=== PATIENT | male | born 1950 | race Caucasian/White ===

== ENCOUNTER 2019-12-16 22:52 | Emergency (ER) | payer MEDICARE ==
[2019-12-16 23:01] VITALS: RESP 18
[2019-12-16 23:11] LABS: Glucose,Whole Blood 451 mg/dL (75-99)
[2019-12-16] MEDS ORDERED: INSULIN REGULAR 100 UNIT/ML VIAL SQ STA (23:43)
[2019-12-16] MEDS ORDERED: SODIUM CHLORIDE 0.9% 1,000 ML IV ONE (23:43)
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
[2019-12-17 00:28] LABS: Basophils % (A) 0 %; Eosinophils # (A) 0.2 k/uL (0-0.7); Eosinophils % (A) 1 %; HCT 44.6 % (39.0-53.0); HGB 13.9 gm/dL (13.0-17.5); Lymphocytes # (A) 0.9 k/uL (1.0-4.8); Lymphocytes % (A) 6 %; MCH 28.2 pg (25.0-35.0); MCHC 31.3 g/dL (31.0-37.0); MCV 90.3 fL (80.0-100.0); Mean Platelet Volume 6.9; Monocytes # (A) 0.8 k/uL (0-1.0); Monocytes % (A) 5 %; Neutrophils # (A) 13.6 k/uL (1.3-7.7); Neutrophils % (A) 88 %; Platelet Count 394 k/uL (150-450); RBC 4.94 m/uL (4.30-5.90); RDW 13.8 % (11.5-15.5); WBC 15.5 k/uL (3.8-10.6)
[2019-12-17 00:31] LABS: Appearance,Urine Clear (Clear); Bilirubin,Urine Negative (Negative); Blood,Urine Negative (Negative); Color,Urine Light Yellow; Glucose,Urine (UA) 4+ (Negative); Ketones,Urine Negative (Negative); Leukocyte Esterase,Urine Negative (Negative); Nitrite,Urine Negative (Negative); Protein,Urine Negative (Negative); Specific Gravity,Urine 1.026 (1.001-1.035); Urobilinogen,Urine <2.0 mg/dL (<2.0)
[2019-12-17 00:37] LABS: ALT 17 U/L (4-49); AST 17 U/L (17-59); African American GFR (CKD) 80 (>60 ml/min/1.73 sqM); Albumin 4.1 g/dL (3.5-5.0); Alkaline Phosphatase 51 U/L (38-126); Anion Gap 9 mmol/L; Blood Urea Nitrogen 23 mg/dL (9-20); Calcium 9.3 mg/dL (8.4-10.2); Carbon Dioxide 22 mmol/L (22-30); Chloride 101 mmol/L (98-107); Glucose 420 mg/dL (74-99); Non-African American GFR(CKD) 69 (>60 ml/min/1.73 sqM); Potassium 5.5 mmol/L (3.5-5.1); Sodium 132 mmol/L (137-145); Total Bilirubin 0.3 mg/dL (0.2-1.3); Total Protein 6.6 g/dL (6.3-8.2)
[2019-12-17] MEDS ORDERED: SODIUM CHLORIDE 0.9% 1,000 ML IV ONE (01:08)
[2019-12-17 01:13] LABS: Glucose,Whole Blood 373 mg/dL (75-99)
[2019-12-17 02:01] LABS: Glucose,Whole Blood 318 mg/dL (75-99)
[2019-12-17 02:19] VITALS: BP 123/82; PULSE 59; TEMP 98.4
== END 2019-12-17 02:29 | disposition home or self-care (01) ==
LOC: EC 22:52
DX: E11.65 Type 2 diabetes mellitus with hyperglycemia (principal); J44.9 Chronic obstructive pulmonary disease, unspecified; I10 Essential (primary) hypertension; E78.5 Hyperlipidemia, unspecified; I25.2 Old myocardial infarction; F17.200 Nicotine dependence, unspecified, uncomplicated; Z79.02 Long term (current) use of antithrombotics/antiplatelets; Z79.1 Long term (current) use of non-steroidal anti-inflammatories (NSAID); Z79.84 Long term (current) use of oral hypoglycemic drugs; Z79.899 Other long term (current) drug therapy; Z88.5 Allergy status to narcotic agent; Z91.018 Allergy to other foods; Z95.1 Presence of aortocoronary bypass graft; Z95.5 Presence of coronary angioplasty implant and graft
CPT/HCPCS: 36415; 80053; 81003; 82009; 84484; 85025; 93005; 96360; 96361; 99285

== ENCOUNTER 2020-03-08 12:36 | Inpatient (IN) | payer MEDICARE ==
[2020-03-08] MEDS ORDERED: ASPIRIN 81 MG PO STA (12:58)
[2020-03-08] MEDS ORDERED: HYDROmorphone 0.5 MG/0.5 ML SYRINGE IVP STA ×3 (13:03→20:05)
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
[2020-03-08 13:22] LABS: Basophils # (A) 0.2 k/uL (0-0.2); Basophils % (A) 2 %; Eosinophils # (A) 0.5 k/uL (0-0.7); Eosinophils % (A) 4 %; HCT 42.9 % (39.0-53.0); HGB 14.3 gm/dL (13.0-17.5); Lymphocytes # (A) 2.1 k/uL (1.0-4.8); Lymphocytes % (A) 19 %; MCHC 33.3 g/dL (31.0-37.0); MCV 90.1 fL (80.0-100.0); Mean Platelet Volume 7.1; Monocytes # (A) 0.8 k/uL (0-1.0); Monocytes % (A) 7 %; Neutrophils # (A) 7.2 k/uL (1.3-7.7); Neutrophils % (A) 65 %; Platelet Count 382 k/uL (150-450); RBC 4.76 m/uL (4.30-5.90); RDW 13.4 % (11.5-15.5)
--- NOTE | 2020-03-08 13:26 | XR ---
EXAMINATION TYPE: XR chest 2V DATE OF EXAM: 03/08/2020 COMPARISON: 12/12/2019 TECHNIQUE: PA and lateral views submitted. HISTORY: Chest pain FINDINGS: The lungs are clear and there is no pneumothorax, pleural effusion, or focal pneumonia. Heart is en larged. There are sternotomy wires. Postsurgical changes overlying the vertebral column. Hyperinflati on seen. No overt failure. Hypertrophic and degenerative change of the spine. Correlate for previous coronary artery stenting. IMPRESSION: 1. COPD and cardiomegaly..
[2020-03-08 13:34] LABS: Albumin 4.1 g/dL (3.5-5.0); Calcium 9.3 mg/dL (8.4-10.2); Magnesium 1.9 mg/dL (1.6-2.3); Potassium 5.1 mmol/L (3.5-5.1); Total Bilirubin 0.6 mg/dL (0.2-1.3)
[2020-03-08 13:40] LABS: INR 0.9 (<1.2); Prothrombin Time 9.5 sec (9.0-12.0)
[2020-03-08 13:49] LABS: Partial Thromboplastin Time 21.2 sec (22.0-30.0)
[2020-03-08] MEDS ORDERED: ALBUTEROL HFA INHALER INHALATION PRN (15:01)
[2020-03-08] MEDS ORDERED: NALOXONE 0.4 MG/ML 1 ML VIAL IV PRN (15:02)
[2020-03-08] MEDS: CYCLOBENZAPRINE 10 MG TAB PO PRN (15:25)
[2020-03-08] MEDS: CLOPIDOGREL 75 MG TAB PO SCH (15:25)
[2020-03-08] MEDS: GABAPENTIN 300 MG CAP PO PRN (15:25)
[2020-03-08] MEDS: NITROGLYCERIN SL TABS 0.4 MG TAB SUBLINGUAL PRN ×2 (15:25→19:47)
[2020-03-08] MEDS ORDERED: lisinopriL 10 MG TAB PO ONE (15:30)
[2020-03-08] MEDS ORDERED: METOPROLOL TARTRATE 25 MG TAB PO ONE (15:30)
[2020-03-08] MEDS ORDERED: amLODIPine 5 MG TAB PO ONE (15:30)
[2020-03-08] MEDS ORDERED: metFORMIN 500 MG TAB PO ONE (15:30)
[2020-03-08] MEDS ORDERED: MELOXICAM 7.5 MG TAB PO ONE (15:30)
[2020-03-08] MEDS ORDERED: SPIRONOLACTONE 25 MG TAB PO ONE (15:30)
[2020-03-08 15:36] LABS: Glucose,Whole Blood 166 mg/dL (75-99)
[2020-03-08] MEDS: MORPHINE SULFATE 4 MG/ML SYRINGE IV PRN ×2 (16:33→23:05)
[2020-03-08] MEDS: methylPREDNISolone SOD SUCCI 40 MG/ML 1 ML VIAL IV SCH ×2 (16:33→23:06)
[2020-03-08] MEDS ORDERED: HEPARIN SODIUM,PORCINE 5,000 UNIT/ML 1 ML VIAL IV ONE (18:14)
[2020-03-08] MEDS ORDERED: HEPARIN SODIUM,PORCINE 5,000 UNIT/ML 1 ML VIAL IV PRN (18:14)
[2020-03-08] MEDS ORDERED: HEPARIN SOD,PORK IN 0.45% NACL 25,000 UNIT in 0.45% NACL 1 250ML.BAG IV SCH (18:30)
[2020-03-08 19:46] LABS: Partial Thromboplastin Time 85.8 sec (22.0-30.0); Prothrombin Time 10.1 sec (9.0-12.0)
[2020-03-08] MEDS: ATORVASTATIN 40 MG TAB PO SCH (20:18)
[2020-03-08 20:39] LABS: Glucose,Whole Blood 248 mg/dL (75-99)
[2020-03-08] MEDS: METOPROLOL TARTRATE 25 MG TAB PO SCH (21:54)
[2020-03-08] MEDS: MELOXICAM 7.5 MG TAB PO SCH (21:54)
[2020-03-08] MEDS: amLODIPine 5 MG TAB PO SCH (21:55)
[2020-03-08] MEDS: traZODone HCL 50 MG TAB PO PRN (21:55)
[2020-03-08] MEDS: INSULIN DETEMIR (LEVEMIR) 100 UNIT/ML SYR SQ SCH (21:55)
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
[2020-03-09] MEDS: MORPHINE SULFATE 4 MG/ML SYRINGE IV PRN ×3 (05:22→15:37)
[2020-03-09 06:19] LABS: Glucose,Whole Blood 258 mg/dL (75-99)
[2020-03-09] MEDS: INSULIN ASPART (NovoLOG) 100 UNIT/ML VIAL SQ SCH ×6 (06:25→21:40)
[2020-03-09] MEDS ORDERED: metFORMIN 500 MG TAB PO SCH (07:30)
[2020-03-09] MEDS ORDERED: ASPIRIN 325 MG TAB PO SCH (09:00)
[2020-03-09] MEDS: MELOXICAM 7.5 MG TAB PO SCH ×2 (09:18→21:37)
[2020-03-09] MEDS: amLODIPine 5 MG TAB PO SCH ×2 (09:18→21:37)
[2020-03-09] MEDS: lisinopriL 10 MG TAB PO SCH (09:18)
[2020-03-09] MEDS: methylPREDNISolone SOD SUCCI 40 MG/ML 1 ML VIAL IV SCH ×2 (09:19→15:39)
[2020-03-09] MEDS: NITROGLYCERIN OINT 1 INCH/GM PACKET TOPICAL SCH ×4 (09:19→23:29)
[2020-03-09] MEDS: METOPROLOL TARTRATE 25 MG TAB PO SCH ×2 (09:19→21:37)
[2020-03-09] MEDS: CLOPIDOGREL 75 MG TAB PO SCH (09:19)
[2020-03-09] MEDS ORDERED: ATORVASTATIN 80 MG TAB PO STA (09:56)
[2020-03-09] MEDS ORDERED: SODIUM CHLORIDE 0.9% 1,000 ML in EMPTY BAG 1 BAG IV ONE (09:56)
[2020-03-09] MEDS ORDERED: ALPRAZolam 0.25 MG TAB PO PRN (09:56)
[2020-03-09] MEDS ORDERED: NITROGLYCERIN SL TABS 0.4 MG TAB SUBLINGUAL PRN (09:56)
[2020-03-09] MEDS ORDERED: ALPRAZolam 0.5 MG TAB PO PRN (09:56)
[2020-03-09] MEDS ORDERED: ASPIRIN 325 MG TAB PO STA (09:56)
[2020-03-09 11:09] LABS: Basophils # (A) 0.1 k/uL (0-0.2); Basophils % (A) 0 %; Eosinophils # (A) 0.2 k/uL (0-0.7); Eosinophils % (A) 1 %; HCT 43.6 % (39.0-53.0); HGB 14.4 gm/dL (13.0-17.5); Lymphocytes # (A) 1.3 k/uL (1.0-4.8); Lymphocytes % (A) 7 %; MCH 30.1 pg (25.0-35.0); MCHC 33.2 g/dL (31.0-37.0); MCV 90.9 fL (80.0-100.0); Mean Platelet Volume 7.8; Monocytes # (A) 0.4 k/uL (0-1.0); Monocytes % (A) 2 %; Neutrophils # (A) 15.6 k/uL (1.3-7.7); Neutrophils % (A) 89 %; Platelet Count 382 k/uL (150-450); RBC 4.79 m/uL (4.30-5.90); RDW 13.4 % (11.5-15.5); WBC 17.6 k/uL (3.8-10.6)
--- NOTE | 2020-03-09 11:28 | ECHOF ---
Referral Reason:LV function, elevated troponins, chest pain MEASUREMENTS -------- HEIGHT: 162.6 cm WEIGHT: 106.1 kg BP: IVSd: 1.0 cm (0.6 - 1.1) LVIDd: 4.5 cm (3.9 - 5.3) LVPWd: 1.2 cm (0.6 - 1.1) IVSs: 1.3 cm LVIDs: 2.9 cm LVPWs: 1.4 cm Ao Diam: 2.9 cm (2.0 - 3.7) LA Diam: 2.6 cm (2.7 - 3.8) MV EXCURSION: 9.761 mm (> 18.000) MV EF SLOPE: 64 mm/s (70 - 150) EPSS: 1.4 cm MV E Parth: 0.77 m/s MV DecT: 152 ms MV A Parth: 1.04 m/s MV E/A Ratio: 0.74 RAP: 5.00 mmHg RVSP: 9.20 mmHg FINDINGS -------- This was a technically difficult study with suboptimal views. The left ventricular size is normal. Left ventricular wall thickness is normal. Overall left vent ricular systolic function is moderate-severely impaired with, an EF between 30 - 35 %. The RV was not well visualized. The left atrium was not well visualized. The right atrium was not well visualized. Lumason used The aortic valve was not well visualized. The mitral valve was not well visualized. There is trace mitral regurgitation. The tricuspid valve was not well visualized. Trace tricuspid regurgitation present. Right ventric ular systolic pressure is normal at < 35 mmHg. The pulmonic valve was not well visualized. There is an apical LV thrombus. The aortic root size is normal. IVC Not well visulized. There is no pericardial effusion. CONCLUSIONS -------- 1. The left ventricular size is normal. 2. Left ventricular wall thickness is normal. 3. Overall left ventricular systolic function is moderate-severely impaired with, an EF between 30 - 35 %. 4. There is trace mitral regurgitation. 5. Trace tricuspid regurgitation present. 6. There is an apical LV thrombus. 7. There is no pericardial effusion. CLERK SPECIALIST: Mary Kate Contreras RDCS
[2020-03-09 11:39] LABS: Calcium 10.3 mg/dL (8.4-10.2); Potassium 5.4 mmol/L (3.5-5.1)
[2020-03-09] MEDS ORDERED: IV FLUID CONTINUATION 700 ML IV ONE (11:40)
[2020-03-09] MEDS ORDERED: LIDOCAINE 1% INJ 10MG/ML (20 ML MDV) SQ ONE (12:00)
[2020-03-09] MEDS: MIDAZOLAM 2 MG/2 ML VIAL IV ONE ×2 (12:00→12:18)
[2020-03-09] MEDS ORDERED: VERAPAMIL SYRINGE (5 MG/10 ML) INTRAARTER ONE (12:06)
[2020-03-09] MEDS ORDERED: HEPARIN SODIUM 1,000 UN/ML (10ML VL) IV ONE (12:08)
[2020-03-09] MEDS ORDERED: MORPHINE SULFATE 4 MG/ML SYRINGE IV ONE (12:18)
[2020-03-09] MEDS ORDERED: IOPAMIDOL-370 125ML BTL INJ ONE (12:34)
[2020-03-09] MEDS ORDERED: RX INFO: IV CONTRAST WAS GIVEN 1 EACH MISC MISCELLANE PRN (13:32)
--- NOTE | 2020-03-09 13:32 | P.CARDCATH ---
Description of Procedure: PROCEDURES PERFORMED: Left heart catheterization, bilateral coronary angiography, SVG to diagonal angiography INDICATION: Non-STEMI HISTORY: Patient is a pleasant 69-year-old male with history of COPD, coronary artery disease status post CABG in 1994 with only remaining grafts being SVG to diagonal branch back filling the LAD, diabetes mellitus, hypertension, hyperlipidemia, morbid obesity who presents secondary to retrosternal chest pain. He was found to have non-STEMI however by the time he presented to the [facility] is not complaining of any chest discomfort. He does have a history of prior PCI to the RCA as well as PCI of the SVG to diagonal branch x2 that backfills a [employer]ACHINE [employer] of the proximal to mid LAD. Last heart catheterization was from 2009. Patient had an echocardiogram performed which showed ejection fraction 30-35% with apical thrombus. CONSENT:I have discussed the risks, benefits and alternative therapies for the above-mentioned procedure and for both sedation/analgesia as well as necessary blood product administration, if indicated, as they pertain to this patient. The patient has indicated understanding and acceptance of the risks and procedures discussed. PROCEDURE: After the risks, benefits and alternatives of the above mentioned procedure explained in detail with the patient, informed consent was obtained. Patient was taken to the catheterization lab and prepped and draped in usual fashion. 1% lidocaine was used to anesthetize the right radial artery. A 6- Beninese sheath was placed in the right radial artery using modified Seldinger technique. Left coronary angiography was performed with a 5-Beninese JL 3.5 catheter and right coronary angiography was performed with a 6-Beninese AL1 cathet er in various views. The SVG to diagonal branch was engaged with a 5-Beninese FR 5 catheter and angiography was performed. The 5-Beninese FR 5 catheter fell into the left ventricle and therefore pressure measurements were obtained. Due to patient not having any active chest pain with relatively unchanged [place] coronaries and LAD intervention requiring complex [employer] procedure, the procedure was ended. The right radial sheath was removed and a TR band was placed with hemostasis achieved. The patient tolerated the procedure well. Patient was transported back to the post catheterization holding area in stable condition. Conscious Sedation: Patient was monitored under the direct supervision of vision of myself for conscious sedation using Versed and morphine for a total duration of 33 minutes HEMODYNAMICS: Ao: 112/53 LV: 112/5 LVEDP 17 SELECTIVE CORONARY ARTERIOGRAPHY: LEFT MAIN: The left main is a large caliber vessel which bifurcates into the LAD and circumflex. There is a heavily calcified distal left main 40-50% stenosis. LEFT ANTERIOR DESCENDING CORONARY ARTERY: LAD is a large caliber vessel which wraps around to the apex. There is a proximal LAD 50% stenosis and gives off a small diagonal branch and then there is a 100% mid LAD occlusion. This appears to be a [employer] of approximately 40 mm. A moderate caliber diagonal 1 branch and the mid to distal LAD is filled by left to left collaterals. There appears to be at least a 50-70% stenosis of the mid LAD just after the diagonal 1 branch. LEFT CIRCUMFLEX CORONARY ARTERY: Left circumflex is a moderate caliber vessel. It gives off a moderate caliber OM1 without significant stenosis, OM 2 with a mid 40-50% stenosis and just distal to OM2, the circumflex has a 40-50% stenosis just after the bifurcation. RIGHT CORONARY ARTERY: The right coronary artery is a large caliber vessel which is almost aneurysmal which gives off a PDA and PLV branch and is the dominant vessel. There is a proximal RCA stent with mild 20% in-stent stenosis as well as a mid to distal RCA stent without in-stent stenosis. There is a focal 40-50% mid RCA stenosis. Just after the stent there is a 40% stenosis. There are right to left collaterals to the LAD. SVG to LAD: The SVG is 100% occluded proximally. There are previous stents in the proximal and midportion. FINAL IMPRESSION: 1. CAD as described above including 4050% left main stenosis, 100% long [employer] lesion of the proximal and mid LAD, 50-70% mid to distal LAD stenosis, 40-50% circumflex stenosis and 40-50% mid RCA stenosis. 100% occlusion of SVG to LAD 2. Mildly elevated left-sided filling pressures. 3. Non-STEMI PLAN: 1. Aggressive risk factor modification per most recent ACC/AHA guidelines. 2. Would attempt medical therapy as patient is currently chest pain-free. [employer] intervention would require a long approximately 40 mm heavily calcified lesion.
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
[2020-03-09] MEDS: SPIRONOLACTONE 25 MG TAB PO SCH ×2 (14:40→15:40)
[2020-03-09] MEDS: IPRATROPIUM-ALBUTEROL 3 ML NEB INHALATION PRN (15:08)
[2020-03-09 16:52] LABS: Glucose,Whole Blood 367 mg/dL (75-99)
[2020-03-09 17:15] LABS: Hemoglobin A1C 8.4 % (4.0-6.0)
[2020-03-09 20:14] LABS: Glucose,Whole Blood 357 mg/dL (75-99)
[2020-03-09] MEDS: APIXABAN 5 MG TAB PO SCH (21:37)
[2020-03-09] MEDS: INSULIN DETEMIR (LEVEMIR) 100 UNIT/ML SYR SQ SCH (21:37)
[2020-03-09] MEDS: ATORVASTATIN 40 MG TAB PO SCH (21:37)
[2020-03-09] MEDS: PANTOPRAZOLE 40 MG TABLET PO SCH (21:46)
[2020-03-09] MEDS: GABAPENTIN 300 MG CAP PO PRN (21:46)
[2020-03-09] MEDS: traZODone HCL 50 MG TAB PO PRN (23:25)
[2020-03-10] MEDS: MORPHINE SULFATE 4 MG/ML SYRINGE IV PRN ×5 (02:25→23:12)
[2020-03-10 06:13] LABS: Glucose,Whole Blood 228 mg/dL (75-99)
[2020-03-10] MEDS: NITROGLYCERIN OINT 1 INCH/GM PACKET TOPICAL SCH (06:28)
[2020-03-10] MEDS: PANTOPRAZOLE 40 MG TABLET PO SCH ×2 (06:31→17:55)
[2020-03-10] MEDS: INSULIN ASPART (NovoLOG) 100 UNIT/ML VIAL SQ SCH ×7 (06:31→20:58)
[2020-03-10] MEDS: SPIRONOLACTONE 25 MG TAB PO SCH (08:33)
[2020-03-10] MEDS: lisinopriL 10 MG TAB PO SCH (08:33)
[2020-03-10] MEDS: MELOXICAM 7.5 MG TAB PO SCH ×2 (08:33→20:58)
[2020-03-10] MEDS: CLOPIDOGREL 75 MG TAB PO SCH (08:33)
[2020-03-10] MEDS: predniSONE 10 MG TAB PO SCH (08:33)
[2020-03-10] MEDS: amLODIPine 5 MG TAB PO SCH (08:34)
[2020-03-10] MEDS: APIXABAN 5 MG TAB PO SCH ×2 (08:34→20:57)
[2020-03-10] MEDS: METOPROLOL TARTRATE 25 MG TAB PO SCH (08:34)
[2020-03-10] MEDS ORDERED: ASPIRIN 81 MG PO SCH (09:00)
[2020-03-10 10:05] LABS: Basophils # (A) 0.1 k/uL (0-0.2); Basophils % (A) 1 %; Eosinophils # (A) 0.2 k/uL (0-0.7); Eosinophils % (A) 1 %; HCT 41.9 % (39.0-53.0); HGB 13.9 gm/dL (13.0-17.5); Lymphocytes # (A) 1.3 k/uL (1.0-4.8); Lymphocytes % (A) 6 %; MCH 30.4 pg (25.0-35.0); MCHC 33.2 g/dL (31.0-37.0); MCV 91.7 fL (80.0-100.0); Mean Platelet Volume 7.2; Monocytes # (A) 1.4 k/uL (0-1.0); Monocytes % (A) 6 %; Neutrophils # (A) 19.2 k/uL (1.3-7.7); Neutrophils % (A) 85 %; Platelet Count 349 k/uL (150-450); RBC 4.57 m/uL (4.30-5.90); RDW 13.5 % (11.5-15.5); WBC 22.6 k/uL (3.8-10.6)
[2020-03-10 10:14] LABS: Calcium 9.4 mg/dL (8.4-10.2)
[2020-03-10 11:39] LABS: Glucose,Whole Blood 396 mg/dL (75-99)
[2020-03-10 11:39] LABS: Glucose,Whole Blood 404 mg/dL (75-99)
[2020-03-10] MEDS: IPRATROPIUM-ALBUTEROL 3 ML NEB INHALATION PRN ×3 (13:36→19:15)
--- NOTE | 2020-03-10 16:20 | P.PN ---
Subjective Progress Note Date: 03/10/20 CHIEF COMPLAINT: Chest pain HISTORY OF PRESENT ILLNESS: Patient is status post cardiac catheterization with Dr. Duran revealing 40-50% stenosis left main, 100% long [employer]IST lesion of the proximal and mid LAD, 50-70% mid to distal LAD, 40-50% circumflex and 40-50% mid RCA stenosis. 100% occlusion of SVG to LAD. Patient examined this morning at the bedside. Patient denies chest pain or pressure. He denies shortness of breath at rest. Vital signs are stable. PHYSICAL EXAM: VITAL SIGNS: Reviewed. GENERAL: Well-developed in no acute distress. HEENT: Head is normocephalic. Pupils are equal, round. Sclerae anicteric. Mucous membranes of the mouth are moist. Neck supple. No JVD or thyromegaly LUNGS: Respirations even and unlabored. Lungs diminished. HEART: Regular rate and rhythm. S1 and S2 heard. EXTREMITIES: Normal range of motion. No clubbing or cyanosis. Peripheral pulses intact. No lower extremity edema. Cath site clean and intact with pulses present. ASSESSMENT: Non-ST elevated myocardial infarction Apical LV thrombus Coronary artery disease with previous multivessel PCI and CABG Hypertension Hyperlipidemia Diabetes mellitus, type II COPD Obesity BMI 40.2 PLAN: Continue Eliquis for apical LV thrombus Continue Plavix. Discontinue aspirin Discontinue metoprolol. Begin carvedilol 6.25 mg twice a day Increase Lipitor to 80 mg daily Further recommendations pending patient course Nurse practitioner note has been reviewed by physician. Signing provider agrees with the documented findings, assessment, and plan of care. Objective - Vital Signs Vital signs: Vital Signs Temp 97.9 F 03/10/20 08:00 Pulse 73 03/10/20 15:36 Resp 18 03/10/20 12:52 BP 100/62 03/10/20 08:00 Pulse Ox 94 L 03/10/20 08:00 Intake & Output 03/09/20 03/10/20 03/10/20 18:59 06:59 18:59 Intake Total 1274 600 960 Output Total 200 Balance 1274 400 960 Weight 106.5 kg Intake: IV 50 600 0.9 600 Intake, IV Titration 864 Amount Sodium Chloride 0.9% 1, 864 000 ml In Empty Bag 1 bag @ 1 ML/KG/HR 106.3 mls/ hr IV .Q9H25M [facility] Rx#: [id number] Oral 360 960 Output: Urine 200 Other: Voiding Method Toilet Urinal # Voids 300 1 - Labs CBC & Chem 7: 03/10/20 09:44 03/10/20 09:44 Labs: Abnormal Lab Results - Last 24 Hours (Table) 03/09/20 03/09/20 03/09/20 Range/Units 10:29 16:51 20:13 WBC (3.8-10.6) k/uL Neutrophils # (1.3-7.7) k/uL Monocytes # (0-1.0) k/uL Sodium (137-145) mmol/L BUN (9-20) mg/dL Glucose (74-99) mg/dL POC Glucose (mg/dL) 367 H 357 H (75-99) mg/dL Hemoglobin A1c 8.4 H (4.0-6.0) % 03/10/20 03/10/20 03/10/20 Range/Units 06:12 09:44 09:44 WBC 22.6 H (3.8-10.6) k/uL Neutrophils # 19.2 H (1.3-7.7) k/uL Monocytes # 1.4 H (0-1.0) k/uL Sodium 132 L (137-145) mmol/L BUN 29 H (9-20) mg/dL Glucose 297 H (74-99) mg/dL POC Glucose (mg/dL) 228 H (75-99) mg/dL Hemoglobin A1c (4.0-6.0) % 03/10/20 03/10/20 Range/Units 11:33 11:37 WBC (3.8-10.6) k/uL Neutrophils # (1.3-7.7) k/uL Monocytes # (0-1.0) k/uL Sodium (137-145) mmol/L BUN (9-20) mg/dL Glucose (74-99) mg/dL POC Glucose (mg/dL) 396 H 404 H (75-99) mg/dL Hemoglobin A1c (4.0-6.0) %
[2020-03-10 17:03] LABS: Glucose,Whole Blood 261 mg/dL (75-99)
[2020-03-10] MEDS: carvediloL 6.25 MG TAB PO SCH (17:55)
[2020-03-10 20:43] LABS: Glucose,Whole Blood 329 mg/dL (75-99)
[2020-03-10] MEDS: INSULIN DETEMIR (LEVEMIR) 100 UNIT/ML SYR SQ SCH (20:58)
[2020-03-10] MEDS: ATORVASTATIN 80 MG TAB PO SCH (20:58)
[2020-03-10] MEDS: GABAPENTIN 300 MG CAP PO PRN (21:01)
[2020-03-10] MEDS: traZODone HCL 50 MG TAB PO PRN (23:12)
[2020-03-11 06:32] LABS: Glucose,Whole Blood 228 mg/dL (75-99)
[2020-03-11] MEDS: PANTOPRAZOLE 40 MG TABLET PO SCH ×2 (06:37→17:08)
[2020-03-11] MEDS: carvediloL 6.25 MG TAB PO SCH ×2 (06:38→17:08)
[2020-03-11] MEDS: INSULIN ASPART (NovoLOG) 100 UNIT/ML VIAL SQ SCH ×7 (06:38→20:28)
[2020-03-11] MEDS: IPRATROPIUM-ALBUTEROL 3 ML NEB INHALATION PRN ×2 (07:13→15:47)
[2020-03-11 08:13] LABS: Basophils # (A) 0.2 k/uL (0-0.2); Basophils % (A) 1 %; Eosinophils # (A) 0.1 k/uL (0-0.7); Eosinophils % (A) 1 %; HCT 45.4 % (39.0-53.0); HGB 14.7 gm/dL (13.0-17.5); Lymphocytes # (A) 3.9 k/uL (1.0-4.8); Lymphocytes % (A) 19 %; MCH 29.8 pg (25.0-35.0); MCHC 32.4 g/dL (31.0-37.0); MCV 91.8 fL (80.0-100.0); Mean Platelet Volume 7.5; Monocytes # (A) 1.9 k/uL (0-1.0); Monocytes % (A) 9 %; Neutrophils # (A) 14.6 k/uL (1.3-7.7); Neutrophils % (A) 70 %; Platelet Count 399 k/uL (150-450); RBC 4.94 m/uL (4.30-5.90); RDW 13.6 % (11.5-15.5); WBC 20.9 k/uL (3.8-10.6)
[2020-03-11 08:17] LABS: Calcium 9.5 mg/dL (8.4-10.2); Potassium 5.1 mmol/L (3.5-5.1)
[2020-03-11] MEDS: MELOXICAM 7.5 MG TAB PO SCH ×2 (09:07→20:28)
[2020-03-11] MEDS: SPIRONOLACTONE 25 MG TAB PO SCH (09:07)
[2020-03-11] MEDS: predniSONE 10 MG TAB PO SCH (09:07)
[2020-03-11] MEDS: APIXABAN 5 MG TAB PO SCH ×2 (09:07→20:28)
[2020-03-11] MEDS: lisinopriL 10 MG TAB PO SCH (09:08)
[2020-03-11] MEDS: CLOPIDOGREL 75 MG TAB PO SCH (09:08)
[2020-03-11] MEDS ORDERED: SODIUM CHLORIDE 0.9% 1,000 ML IV SCH ×2 (11:45)
[2020-03-11 11:48] LABS: Glucose,Whole Blood 154 mg/dL (75-99)
--- NOTE | 2020-03-11 11:58 | P.PN ---
Subjective Progress Note Date: 03/09/20 Principal diagnosis: Acute non-ST elevated WA Acute COPD exacerbation Patient is a 69-year-old male with a known history of COPD, coronary artery disease history of CABG several years ago, cardiac catheterization is history of stent placement, hypertension, hyperlipidemia, diabetes type 2 [id number], history of WA and chronic back pain, morbid obesity with BMI 40.3 and history of diverticulitis presents to ER with complaints of chest pain started around 11 AM today when the got up from sleep and was going to the bathroom. Patient felt pressure-like sensation in the midst retrosternal region. Denied any associated nausea or vomiting. No radiation of the pain. Associate with shortness of breath otherwise. No complaints of fever or chills. Patient states that he always have cough without any change in frequency or sputum production. Patient states that he has not been taking Plavix for the past 10 days as he ran out of medications. Chest x-ray showed COPD and cardiomegaly EKG showed sinus rhythm with occasional PVCs. Laboratory data showed WBC 11.0, hemoglobin 14.3 and platelets 382 Sodium 135, potassium 5.1, BUN 18 and creatinine 1.08 and blood sugar is 200 Troponin 0 0.012, 5.88, 16.8 03/09/2020 Patient is currently status post cardiac catheterization. No complaints of chest pain. Cardiac catheterization showed 40-50% left main stenosis, 100% long PRIMER BOXER lesion of the proximal and mid LAD. 100 versus occlusion of SVG to LAD. Mildly elevated left-sided filling pressure. Aggressive risk factor modification and medical management was recommended by cardiology. Blood sugars are elevated today. Patient was started on insulin regimen. IV steroids changed to prednisone 30 mg daily. Breathing status is improving. Denied any complains of worsening shortness of breath. No nausea vomiting or diarrhea. Current medications reviewed. Objective - Vital Signs Vital signs: Vital Signs Temp 98.0 F 03/09/20 17:17 Pulse 72 03/09/20 17:17 Resp 16 03/09/20 17:17 BP 122/58 03/09/20 17:17 Pulse Ox 92 L 03/09/20 17:17 Intake & Output 03/09/20 03/09/20 03/10/20 06:59 18:59 06:59 Intake Total 53.607 1274 Output Total 690 200 Balance -182.946 7077 -200 Weight 106.3 kg Intake: IV 50 Intake, IV Titration 53.607 864 Amount Heparin Sod,Pork in 0.45% 53.607 NaCl 25,000 unit In 0.45 % NaCl 1 250ml.bag @ 9.4 UNITS/KG/HR 10.02 mls/hr IV .Q24H [facility] Rx#: [id number] Sodium Chloride 0.9% 1, 864 000 ml In Empty Bag 1 bag @ 1 ML/KG/HR 106.3 mls/ hr IV .Q9H25M [facility] Rx#: [id number] Oral 360 Output: Urine 690 200 Other: # Voids 2 300 1 - Exam PHYSICAL EXAMINATION: Patient is lying in the bed comfortably, no acute distress, awake alert and oriented. morbidly obese. HEENT: Normocephalic. Neck is supple. Pupils reactive. Nostrils clear. Oral cavity is moist. Ears reveal no drainage. Neck reveals no JVD, carotid bruits, or thyromegaly. CHEST EXAMINATION: Trachea is central. Symmetrical expansion.mild expiratory wheezing present. CARDIAC: Normal S1, S2 with no gallops. No murmurs ABDOMEN: Soft. Bowel sounds normal. No organomegaly. No abdominal bruits. Extremities: reveal no edema. No clubbing or cyanosis Neurologically awake, alert, oriented x3 with well-coordinated movements. No focal deficits noted Skin: No rash or skin lesions. Psychiatric: Coperative. Nonsuicidal Musculoskeletal: No joint swelling or deformity. Normal range of motion. - Labs CBC & Chem 7: 03/11/20 07:30 03/11/20 07:30 Labs: Abnormal Lab Results - Last 24 Hours (Table) 03/08/20 03/09/20 03/09/20 Range/Units 23:24 06:17 10:29 WBC 17.6 H (3.8-10.6) k/uL Neutrophils # 15.6 H (1.3-7.7) k/uL APTT 36.0 H (22.0-30.0) sec Sodium (137-145) mmol/L Potassium (3.5-5.1) mmol/L BUN (9-20) mg/dL Glucose (74-99) mg/dL POC Glucose (mg/dL) 258 H (75-99) mg/dL Hemoglobin A1c (4.0-6.0) % Calcium (8.4-10.2) mg/dL HDL Cholesterol (40-60) mg/dL 03/09/20 03/09/20 03/09/20 Range/Units 10:29 10:29 10:29 WBC (3.8-10.6) k/uL Neutrophils # (1.3-7.7) k/uL APTT 51.8 H (22.0-30.0) sec Sodium 134 L (137-145) mmol/L Potassium 5.4 H (3.5-5.1) mmol/L BUN 25 H (9-20) mg/dL Glucose 235 H (74-99) mg/dL POC Glucose (mg/dL) (75-99) mg/dL Hemoglobin A1c 8.4 H (4.0-6.0) % Calcium 10.3 H (8.4-10.2) mg/dL HDL Cholesterol 66 H (40-60) mg/dL 03/09/20 03/09/20 Range/Units 16:51 20:13 WBC (3.8-10.6) k/uL Neutrophils # (1.3-7.7) k/uL APTT (22.0-30.0) sec Sodium (137-145) mmol/L Potassium (3.5-5.1) mmol/L BUN (9-20) mg/dL Glucose (74-99) mg/dL POC Glucose (mg/dL) 367 H 357 H (75-99) mg/dL Hemoglobin A1c (4.0-6.0) % Calcium (8.4-10.2) mg/dL HDL Cholesterol (40-60) mg/dL Assessment and Plan Assessment: Acute non-ST elevated WA with elevated troponin level. Status post cardiac cath. Maximal medical therapy was recommended. Chest pain secondary to above Acute COPD exacerbation Hyperglycemia with uncontrolled diabetes type 2 Coronary artery disease with history of CABG and also history of stent placement Hypertension Hyperlipidemia History of WA Internal hemorrhoids History of diverticulitis Chronic back pain and is on follow-up with pain management clinic Ongoing nicotine addiction History of marijuana use and prescription drug abuse History of alcohol abuse currently drinks rarely. Morbid obesity with a BMI 40.3 DVT prophylaxis. Patient is already on heparin drip. Plan: Patient will be continued on telemetry monitoring. Patient is status post cardiac catheterization.. Cardiology is on board. Pain management with morphine and follow-up closely. Continue with breathing treatments and started on Solu-Medrol 40 mg every 8 hourly---> change to prednisone 30 mg daily. Continue with insulin regimen. Titrate down FiO2. Continue with aspirin Plavix, statins and beta-blockers. Prognosis guarded with mild medical problems and comorbid conditions. Time with Patient: Greater than 30
--- NOTE | 2020-03-11 12:00 | P.PN ---
Subjective Progress Note Date: 03/10/20 Principal diagnosis: Acute non-ST elevated KS Acute COPD exacerbation Apical LV thrombus Patient is a 69-year-old male with a known history of COPD, coronary artery disease history of CABG several years ago, cardiac catheterization is history of stent placement, hypertension, hyperlipidemia, diabetes type 2 [id number], history of KS and chronic back pain, morbid obesity with BMI 40.3 and history of diverticulitis presents to ER with complaints of chest pain started around 11 AM today when the got up from sleep and was going to the bathroom. Patient felt pressure-like sensation in the midst retrosternal region. Denied any associated nausea or vomiting. No radiation of the pain. Associate with shortness of breath otherwise. No complaints of fever or chills. Patient states that he always have cough without any change in frequency or sputum production. Patient states that he has not been taking Plavix for the past 10 days as he ran out of medications. Chest x-ray showed COPD and cardiomegaly EKG showed sinus rhythm with occasional PVCs. Laboratory data showed WBC 11.0, hemoglobin 14.3 and platelets 382 Sodium 135, potassium 5.1, BUN 18 and creatinine 1.08 and blood sugar is 200 Troponin 0 0.012, 5.88, 16.8 03/09/2020 Patient is currently status post cardiac catheterization. No complaints of chest pain. Cardiac catheterization showed 40-50% left main stenosis, 100% long PROGRAM SCHEDULE CLERK lesion of the proximal and mid LAD. 100 versus occlusion of SVG to LAD. Mildly elevated left-sided filling pressure. Aggressive risk factor modification and medical management was recommended by cardiology. Blood sugars are elevated today. Patient was started on insulin regimen. IV steroids changed to prednisone 30 mg daily. Breathing status is improving. Denied any complains of worsening shortness of breath. No nausea vomiting or diarrhea. 03/10/2020 Patient is currently sitting on the side of the bed comfortably. Awake alert and oriented 3. Denied complains of chest pain. Shortness of breath is much improved. 2-D echo cardiac exam showed apical LV thrombus and was started on Eliquis. Aspirin has been discontinued and patient will be carried on Plavix. Metoprolol was changed to Coreg and continued on statins. Continue to monitor for another 24 hours. Continue with prednisone and insulin regimen. Tolerating oral diet. Current medications reviewed. Objective - Vital Signs Vital signs: Vital Signs Temp 97.9 F 03/10/20 08:00 Pulse 80 03/10/20 13:47 Resp 18 03/10/20 12:52 BP 100/62 03/10/20 08:00 Pulse Ox 94 L 03/10/20 08:00 Intake & Output 03/09/20 03/10/20 03/10/20 18:59 06:59 18:59 Intake Total 1274 600 960 Output Total 200 Balance 1274 400 960 Weight 106.5 kg Intake: IV 50 600 0.9 600 Intake, IV Titration 864 Amount Sodium Chloride 0.9% 1, 864 000 ml In Empty Bag 1 bag @ 1 ML/KG/HR 106.3 mls/ hr IV .[id number] ONE Rx#: [id number] Oral 360 960 Output: Urine 200 Other: Voiding Method Toilet Urinal # Voids 300 1 - Exam PHYSICAL EXAMINATION: Patient is lying in the bed comfortably, no acute distress, awake alert and oriented. morbidly obese. HEENT: Normocephalic. Neck is supple. Pupils reactive. Nostrils clear. Oral cavity is moist. Ears reveal no drainage. Neck reveals no JVD, carotid bruits, or thyromegaly. CHEST EXAMINATION: Trachea is central. Symmetrical expansion.mild expiratory wheezing present. CARDIAC: Normal S1, S2 with no gallops. No murmurs ABDOMEN: Soft. Bowel sounds normal. No organomegaly. No abdominal bruits. Extremities: reveal no edema. No clubbing or cyanosis Neurologically awake, alert, oriented x3 with well-coordinated movements. No focal deficits noted Skin: No rash or skin lesions. Psychiatric: Coperative. Nonsuicidal Musculoskeletal: No joint swelling or deformity. Normal range of motion. - Labs CBC & Chem 7: 03/11/20 07:30 03/11/20 07:30 Labs: Abnormal Lab Results - Last 24 Hours (Table) 03/09/20 03/09/20 03/09/20 Range/Units 10:29 16:51 20:13 WBC (3.8-10.6) k/uL Neutrophils # (1.3-7.7) k/uL Monocytes # (0-1.0) k/uL Sodium (137-145) mmol/L BUN (9-20) mg/dL Glucose (74-99) mg/dL POC Glucose (mg/dL) 367 H 357 H (75-99) mg/dL Hemoglobin A1c 8.4 H (4.0-6.0) % 03/10/20 03/10/20 03/10/20 Range/Units 06:12 09:44 09:44 WBC 22.6 H (3.8-10.6) k/uL Neutrophils # 19.2 H (1.3-7.7) k/uL Monocytes # 1.4 H (0-1.0) k/uL Sodium 132 L (137-145) mmol/L BUN 29 H (9-20) mg/dL Glucose 297 H (74-99) mg/dL POC Glucose (mg/dL) 228 H (75-99) mg/dL Hemoglobin A1c (4.0-6.0) % 03/10/20 03/10/20 Range/Units 11:33 11:37 WBC (3.8-10.6) k/uL Neutrophils # (1.3-7.7) k/uL Monocytes # (0-1.0) k/uL Sodium (137-145) mmol/L BUN (9-20) mg/dL Glucose (74-99) mg/dL POC Glucose (mg/dL) 396 H 404 H (75-99) mg/dL Hemoglobin A1c (4.0-6.0) % Assessment and Plan Assessment: Acute non-ST elevated KS with elevated troponin level. Status post cardiac cath . Maximal medical therapy was recommended. Chest pain secondary to above Apical LV thrombus. Started on Eliquis. Acute COPD exacerbation Hyperglycemia with uncontrolled diabetes type 2 Coronary artery disease with history of CABG and also history of stent placement Hypertension Hyperlipidemia History of KS Internal hemorrhoids History of diverticulitis Chronic back pain and is on follow-up with pain management clinic Ongoing nicotine addiction History of marijuana use and prescription drug abuse History of alcohol abuse currently drinks rarely. Morbid obesity with a BMI 40.3 DVT prophylaxis. Patient is already on heparin drip. Plan: Patient will be continued on telemetry monitoring. Patient is status post cardiac catheterization.. Cardiology is on board. Pain management with morphin e and follow-up closely. Continue with breathing treatments and started on Solu-Medrol 40 mg every 8 hourly---> change to prednisone 30 mg daily. Continue with insulin regimen. Titrate down FiO2. Continue with Eliquis, Plavix, statins and Coreg. Prognosis guarded with mild medical problems and comorbid conditions. Time with Patient: Greater than 30
--- NOTE | 2020-03-11 15:11 | P.PN ---
Subjective Progress Note Date: 03/11/20 CHIEF COMPLAINT: Chest pain HISTORY OF PRESENT ILLNESS: Patient is status post cardiac catheterization with Dr. Duran revealing 40-50% stenosis left main, 100% long LOOSELEAF BINDER COVERER lesion of the proximal and mid LAD, 50-70% mid to distal LAD, 40-50% circumflex and 40-50% mid RCA stenosis. 100% occlusion of SVG to LAD. Patient examined this morning at the bedside. Patient denies chest pain or pressure. He denies shortness of breath at rest. Patient is having runs of nonsustained ventricular tachycardia. Echocardiogram completed revealed ejection fraction between 30 and 35% PHYSICAL EXAM: VITAL SIGNS: Reviewed. GENERAL: Well-developed in no acute distress. HEENT: Head is normocephalic. Pupils are equal, round. Sclerae anicteric. Mucous membranes of the mouth are moist. Neck supple. No JVD or thyromegaly LUNGS: Respirations even and unlabored. Lungs diminished. HEART: Regular rate and rhythm. S1 and S2 heard. EXTREMITIES: Normal range of motion. No clubbing or cyanosis. Peripheral pulses intact. No lower extremity edema. Cath site clean and intact with pulses present. ASSESSMENT: Non-ST elevated myocardial infarction Apical LV thrombus Coronary artery disease with previous multivessel PCI and CABG Ischemic cardiomyopathy, EF 30-35% Hypertension Hyperlipidemia Diabetes mellitus, type II COPD Obesity BMI 40.2 PLAN: Continue current cardiac medications Patient to undergo ICD tomorrow morning with Dr. Gorman Nurse practitioner note has been reviewed by physician. Signing provider agrees with the documented findings, assessment, and plan of care. Objective - Vital Signs Vital signs: Vital Signs Temp 98.0 F 03/11/20 11:56 Pulse 73 03/11/20 12:44 Resp 18 03/11/20 14:00 BP 110/52 03/11/20 14:00 Pulse Ox 94 L 03/11/20 14:00 Intake & Output 03/10/20 03/11/20 03/11/20 18:59 06:59 18:59 Intake Total 1440 10 930 Balance 1440 10 930 Weight 107.2 kg Intake: IV 10 0.9 10 Oral 1440 930 Other: Voiding Method Toilet Toilet Urinal Urinal # Voids 2 1 3 # Bowel Movements 2 - Labs CBC & Chem 7: 03/11/20 07:30 03/11/20 07:30 Labs: Abnormal Lab Results - Last 24 Hours (Table) 03/10/20 03/10/20 03/11/20 Range/Units 16:59 20:42 06:31 WBC (3.8-10.6) k/uL Neutrophils # (1.3-7.7) k/uL Monocytes # (0-1.0) k/uL Sodium (137-145) mmol/L BUN (9-20) mg/dL Creatinine (0.66-1.25) mg/dL Glucose (74-99) mg/dL POC Glucose (mg/dL) 261 H 329 H 228 H (75-99) mg/dL 03/11/20 03/11/20 03/11/20 Range/Units 07:30 07:30 11:46 WBC 20.9 H (3.8-10.6) k/uL Neutrophils # 14.6 H (1.3-7.7) k/uL Monocytes # 1.9 H (0-1.0) k/uL Sodium 133 L (137-145) mmol/L BUN 33 H (9-20) mg/dL Creatinine 1.29 H (0.66-1.25) mg/dL Glucose 172 H (74-99) mg/dL POC Glucose (mg/dL) 154 H (75-99) mg/dL
[2020-03-11] MEDS: MORPHINE SULFATE 4 MG/ML SYRINGE IV PRN ×2 (15:27→23:15)
[2020-03-11 16:46] LABS: Glucose,Whole Blood 270 mg/dL (75-99)
[2020-03-11 19:55] LABS: Glucose,Whole Blood 305 mg/dL (75-99)
[2020-03-11] MEDS: GABAPENTIN 300 MG CAP PO PRN (20:28)
[2020-03-11] MEDS: ATORVASTATIN 80 MG TAB PO SCH (20:28)
[2020-03-11] MEDS: INSULIN DETEMIR (LEVEMIR) 100 UNIT/ML SYR SQ SCH (20:29)
[2020-03-11] MEDS: traZODone HCL 50 MG TAB PO PRN (23:15)
[2020-03-12 05:58] LABS: Glucose,Whole Blood 207 mg/dL (75-99)
[2020-03-12] MEDS ORDERED: SODIUM CHLORIDE 0.9% 1,000 ML IV SCH ×2 (06:00)
[2020-03-12] MEDS ORDERED: ceFAZolin 1,000 MG in SODIUM CHLORIDE 0.9% IRRIGATIO 250 ML IRRIGATION ONE (06:00)
[2020-03-12] MEDS: carvediloL 6.25 MG TAB PO SCH ×2 (06:15→18:02)
[2020-03-12] MEDS: CLOPIDOGREL 75 MG TAB PO SCH (06:15)
[2020-03-12] MEDS: MELOXICAM 7.5 MG TAB PO SCH ×2 (06:15→19:51)
[2020-03-12] MEDS: PANTOPRAZOLE 40 MG TABLET PO SCH ×2 (06:16→17:35)
[2020-03-12] MEDS: lisinopriL 10 MG TAB PO SCH (06:16)
[2020-03-12] MEDS: INSULIN ASPART (NovoLOG) 100 UNIT/ML VIAL SQ SCH ×7 (06:16→20:34)
[2020-03-12] MEDS ORDERED: HYDROmorphone (PF) 1 MG/ML ONE (07:21)
[2020-03-12] MEDS ORDERED: IV FLUID CONTINUATION 800 ML IV ONE (07:21)
[2020-03-12] MEDS ORDERED: diphenhydrAMINE 50 MG/ML 1 ML VIAL ONE ×2 (07:21→07:45)
[2020-03-12] MEDS ORDERED: MIDAZOLAM 2 MG/2 ML VIAL ONE (07:21)
[2020-03-12] MEDS ORDERED: IOPAMIDOL-370 50ML BTL INJ ONE (07:43)
[2020-03-12] MEDS ORDERED: LIDOCAINE 1% INJ 10MG/ML (20 ML MDV) ONE (07:49)
[2020-03-12] MEDS ORDERED: LIDOCAINE 1% INJ 10MG/ML (20 ML MDV) SQ ONE (08:00)
[2020-03-12] MEDS ORDERED: ACETAMINOPHEN TAB 325 MG TAB PO PRN ×2 (09:07→09:11)
--- NOTE | 2020-03-12 09:07 | P.EPPROC ---
- EP Procedure Note Electrophysiology Procedure Note: Diagnosis Patient is a candidate for a secondary prevention ICD for future risk of sudden cardiac . Coronary artery disease, old myocardial infarction, ischemic cardio myopathy Chronic systolic heart failure class II, reduced LV systolic function of 35% or less On guideline directed medical treatment for greater than 3 months No revascularization within the last 3 months. Patient not a candidate for any revascularization Long runs of ventricular tachycardia despite maximizing medical treatment Procedure: ICD implantation management of risk of sudden cardiac , secondary prevention Chemical Processor: Dr. Gorman Result: Single-chamber ICD implantation, RV lead: Medtronic ICD model #6935 and him a 62 cm in length and serial number [id number], screwed in the RV septum R waves 12.5 mV, pacing impedance 682 ohms, acing threshold 0.5 V at 0.5 ms Procedure details: Patient was brought to the EP lab in a fasting state. Written informed consent was obtained prior to the procedure. Options, pros and cons, benefits and risks and complications discussed with patient in detail prior to the procedure (shared decision making). Importance of continuing medical treatment emphasized. Alternatives discussed. Patient would like to proceed with biventricular ICD implant. Left upper extremity venogram performed. 15 mL IV dye injected in the left arm. Patent axillary/subclavian vein The left pectoral area was prepped and draped as a protocol. IV antibiotics administered 1% lidocaine was used for local anesthesia. A 4 cm incision was made parallel to the deltopectoral groove, about 1.5 cm medial to it. The incision was carried down to the level of the pectoralis muscle and the subfascial pocket was made. Hemostasis was assured. The axillary vein access was obtained. Appropriately sized into to see sheaths were placed. ICD lead implanted in the right ventricle and screwed in. ICD lead tested for threshold, sensing, impedances and tested with high output pacing for diaphragmatic stimulation Lead secured to the underlying transverse muscle after removing sheaths . Pocket irrigated with antibiotic solution Leads connected to the biventricular ICD generator. Wound closed in 3 layers and dressed per protocol ICD interrogated and programmed. Appropriate pacing parameters, antitachycardia therapies with antitachycardia pacing cardioversion defibrillations programmed. Patient tolerated the procedure well without any acute complications. See scanned device report in EMR for lead details DFT testing was withheld. Patient has non-revascularizable coronary artery disease, triple-vessel disease, status post coronary artery bypass grafting many years back and experiencing runs of ventricular tachycardia despite maximizing medical treatment Patient is not a candidate for revascularization
[2020-03-12] MEDS ORDERED: ACETAMINOPHEN IV (For NPO) 1,000 MG in EMPTY BAG 1 BAG IVPB ONE (09:30)
[2020-03-12 09:49] LABS: Glucose,Whole Blood 164 mg/dL (75-99)
[2020-03-12] MEDS: APIXABAN 5 MG TAB PO SCH ×2 (09:56→19:51)
--- NOTE | 2020-03-12 10:08 | XR ---
EXAMINATION TYPE: XR chest 1V portable DATE OF EXAM: 03/12/2020 HISTORY: Shortness of breath. COMPARISON: 03/08/20 TECHNIQUE: Single view of the chest is submitted. FINDINGS: Demonstrated are scattered senescent parenchymal change. There is no evidence for focal infiltrate. The heart is stable. Hilar and mediastinal structures are within normal limits. Degenerative changes are seen of the dorsal spine. IMPRESSION: 1. Chronic changes without evidence for acute pulmonary disease.
[2020-03-12] MEDS: IPRATROPIUM-ALBUTEROL 3 ML NEB INHALATION PRN ×3 (11:00→20:10)
[2020-03-12] MEDS: SPIRONOLACTONE 25 MG TAB PO SCH (11:20)
[2020-03-12 11:36] LABS: Glucose,Whole Blood 275 mg/dL (75-99)
--- NOTE | 2020-03-12 11:56 | P.PN ---
Subjective Progress Note Date: 03/11/20 Principal diagnosis: Acute non-ST elevated [place] Acute COPD exacerbation Apical LV thrombus Patient is a 69-year-old male with a known history of COPD, coronary artery disease history of CABG several years ago, cardiac catheterization is history of stent placement, hypertension, hyperlipidemia, diabetes type 2 [id number], history of [place] and chronic back pain, morbid obesity with BMI 40.3 and history of diverticulitis presents to ER with complaints of chest pain started around 11 AM today when the got up from sleep and was going to the bathroom. Patient felt pressure-like sensation in the midst retrosternal region. Denied any associated nausea or vomiting. No radiation of the pain. Associate with shortness of breath otherwise. No complaints of fever or chills. Patient states that he always have cough without any change in frequency or sputum production. Patient states that he has not been taking Plavix for the past 10 days as he ran out of medications. Chest x-ray showed COPD and cardiomegaly EKG showed sinus rhythm with occasional PVCs. Laboratory data showed WBC 11.0, hemoglobin 14.3 and platelets 382 Sodium 135, potassium 5.1, BUN 18 and creatinine 1.08 and blood sugar is 200 Troponin 0 0.012, 5.88, 16.8 03/09/2020 Patient is currently status post cardiac catheterization. No complaints of chest pain. Cardiac catheterization showed 40-50% left main stenosis, 100% long CHARACTER ARTIST lesion of the proximal and mid LAD. 100 versus occlusion of SVG to LAD. Mildly elevated left-sided filling pressure. Aggressive risk factor modification and medical management was recommended by cardiology. Blood sugars are elevated today. Patient was started on insulin regimen. IV steroids changed to prednisone 30 mg daily. Breathing status is improving. Denied any complains of worsening shortness of breath. No nausea vomiting or diarrhea. 03/10/2020 Patient is currently sitting on the side of the bed comfortably. Awake alert and oriented 3. Denied complains of chest pain. Shortness of breath is much improved. 2-D echo cardiac exam showed apical LV thrombus and was started on Eliquis. Aspirin has been discontinued and patient will be carried on Plavix. Metoprolol was changed to Coreg and continued on statins. Continue to monitor for another 24 hours. Continue with prednisone and insulin regimen. Tolerating oral diet. 03/11/2020 Patient is currently sitting in a chair comfortably. Denied any complaints of chest pain. Shortness of breath is getting better. Patient is on Eliquis for apical thrombus. 2-D echocardiogram showed ejection fraction 30-35%. Patient is also having runs of nonsustained V. tach. Cardiology is planning for AICD placement likely tomorrow. Patient has been afebrile. Blood sugars better controlled. Continued on breathing treatments and prednisone. No wheezing noted today. Current medications reviewed. Objective - Vital Signs Vital signs: Vital Signs Temp 98.0 F 03/11/20 11:56 Pulse 73 03/11/20 12:44 Resp 18 03/11/20 14:00 BP 110/52 03/11/20 14:00 Pulse Ox 94 L 03/11/20 14:00 Intake & Output 03/10/20 03/11/20 03/11/20 18:59 06:59 18:59 Intake Total 1440 10 480 Balance 1440 10 480 Weight 107.2 kg Intake: IV 10 0.9 10 Oral 1440 480 Other: Voiding Method Toilet Toilet Urinal Urinal # Voids 2 1 3 # Bowel Movements 2 - Exam PHYSICAL EXAMINATION: Patient is lying in the bed comfortably, no acute distress, awake alert and oriented. morbidly obese. HEENT: Normocephalic. Neck is supple. Pupils reactive. Nostrils clear. Oral cavity is moist. Ears reveal no drainage. Neck reveals no JVD, carotid bruits, or thyromegaly. CHEST EXAMINATION: Trachea is central. Symmetrical expansion.no wheezing or rhonchi. CARDIAC: Normal S1, S2 with no gallops. No murmurs ABDOMEN: Soft. Bowel sounds normal. No organomegaly. No abdominal bruits. Extremities: reveal no edema. No clubbing or cyanosis Neurologically awake, alert, oriented x3 with well-coordinated movements. No focal deficits noted Skin: No rash or skin lesions. Psychiatric: Coperative. Nonsuicidal Musculoskeletal: No joint swelling or deformity. Normal range of motion. - Labs CBC & Chem 7: 03/11/20 07:30 03/11/20 07:30 Labs: Abnormal Lab Results - Last 24 Hours (Table) 03/10/20 03/10/20 03/11/20 Range/Units 16:59 20:42 06:31 WBC (3.8-10.6) k/uL Neutrophils # (1.3-7.7) k/uL Monocytes # (0-1.0) k/uL Sodium (137-145) mmol/L BUN (9-20) mg/dL Creatinine (0.66-1.25) mg/dL Glucose (74-99) mg/dL POC Glucose (mg/dL) 261 H 329 H 228 H (75-99) mg/dL 03/11/20 03/11/20 03/11/20 Range/Units 07:30 07:30 11:46 WBC 20.9 H (3.8-10.6) k/uL Neutrophils # 14.6 H (1.3-7.7) k/uL Monocytes # 1.9 H (0-1.0) k/uL Sodium 133 L (137-145) mmol/L BUN 33 H (9-20) mg/dL Creatinine 1.29 H (0.66-1.25) mg/dL Glucose 172 H (74-99) mg/dL POC Glucose (mg/dL) 154 H (75-99) mg/dL Assessment and Plan Assessment: Acute non-ST elevated NH with elevated troponin level. Status post cardiac cath. Maximal medical therapy was recommended. Nonsustained and regular tachycardia Chest pain secondary to above Apical LV thrombus. Started on Eliquis. Acute COPD exacerbation Hyperglycemia with uncontrolled diabetes type 2 Coronary artery disease with history of CABG and also history of stent placement Hypertension Hyperlipidemia History of [place] Internal hemorrhoids History of diverticulitis Chronic back pain and is on follow-up with pain management clinic Ongoing nicotine addiction History of marijuana use and prescription drug abuse History of alcohol abuse currently drinks rarely. Morbid obesity with a BMI 40.3 DVT prophylaxis. Patient is already on heparin drip. Plan: Patient will be continued on telemetry monitoring. Patient is status post cardiac catheterization.. Cardiology is on board. Pain management with tawnya panda and follow-up closely. Continue with breathing treatments and started on Solu-Medrol 40 mg every 8 hourly---> change to prednisone 30 mg daily. Continue with insulin regimen. Titrate down FiO2. Continue with Eliquis, Plavix, statins and Coreg. Prognosis guarded with mild medical problems and comorbid conditions. Time with Patient: Greater than 30
[2020-03-12] MEDS: MORPHINE SULFATE 4 MG/ML SYRINGE IV PRN ×2 (13:24→19:52)
[2020-03-12] MEDS: HYDROcodone/APAP 5-325MG 1 EACH TAB PO PRN ×3 (13:24→22:31)
[2020-03-12 16:54] LABS: Glucose,Whole Blood 97 mg/dL (75-99)
[2020-03-12] MEDS: ATORVASTATIN 80 MG TAB PO SCH (19:52)
[2020-03-12 20:26] LABS: Glucose,Whole Blood 385 mg/dL (75-99)
[2020-03-12] MEDS: INSULIN DETEMIR (LEVEMIR) 100 UNIT/ML SYR SQ SCH (20:34)
[2020-03-12] MEDS: traZODone HCL 50 MG TAB PO PRN (22:31)
[2020-03-13] MEDS: MORPHINE SULFATE 4 MG/ML SYRINGE IV PRN (00:41)
[2020-03-13] MEDS: HYDROcodone/APAP 5-325MG 1 EACH TAB PO PRN ×3 (05:31→22:29)
[2020-03-13 06:05] LABS: Glucose,Whole Blood 171 mg/dL (75-99)
[2020-03-13] MEDS: INSULIN ASPART (NovoLOG) 100 UNIT/ML VIAL SQ SCH ×7 (06:11→21:36)
[2020-03-13] MEDS: PANTOPRAZOLE 40 MG TABLET PO SCH ×2 (06:11→17:08)
[2020-03-13] MEDS: carvediloL 6.25 MG TAB PO SCH ×2 (06:11→17:08)
[2020-03-13 07:49] LABS: Basophils # (A) 0.1 k/uL (0-0.2); Basophils % (A) 1 %; Eosinophils # (A) 0.6 k/uL (0-0.7); Eosinophils % (A) 4 %; HCT 43.7 % (39.0-53.0); HGB 14.6 gm/dL (13.0-17.5); Lymphocytes # (A) 3.8 k/uL (1.0-4.8); Lymphocytes % (A) 22 %; MCHC 33.4 g/dL (31.0-37.0); Mean Platelet Volume 7.1; Monocytes # (A) 1.7 k/uL (0-1.0); Monocytes % (A) 10 %; Neutrophils # (A) 10.6 k/uL (1.3-7.7); Neutrophils % (A) 62 %; Platelet Count 339 k/uL (150-450); RBC 4.86 m/uL (4.30-5.90); RDW 13.5 % (11.5-15.5); WBC 17.2 k/uL (3.8-10.6)
[2020-03-13 08:00] LABS: Calcium 9.1 mg/dL (8.4-10.2); Potassium 5.9 mmol/L (3.5-5.1)
[2020-03-13] MEDS: IPRATROPIUM-ALBUTEROL 3 ML NEB INHALATION PRN ×4 (08:11→21:17)
[2020-03-13] MEDS: MELOXICAM 7.5 MG TAB PO SCH ×2 (09:11→21:05)
[2020-03-13] MEDS: CLOPIDOGREL 75 MG TAB PO SCH (09:11)
[2020-03-13] MEDS: SPIRONOLACTONE 25 MG TAB PO SCH (09:11)
[2020-03-13] MEDS: APIXABAN 5 MG TAB PO SCH ×2 (09:11→21:05)
[2020-03-13] MEDS: lisinopriL 10 MG TAB PO SCH (09:12)
[2020-03-13] MEDS ORDERED: SODIUM POLYSTYRENE SULFONATE 15 GM/60 ML BOTTLE PO STA (11:13)
[2020-03-13 12:00] LABS: Glucose,Whole Blood 193 mg/dL (75-99)
--- NOTE | 2020-03-13 12:31 | P.PN ---
Subjective Progress Note Date: 03/13/20 CHIEF COMPLAINT: Chest pain HISTORY OF PRESENT ILLNESS: Patient is status post cardiac catheterization with Dr. Duran revealing 40-50% stenosis left main, 100% long PHOTOFLASH POWDER MIXER lesion of the proximal and mid LAD, 50-70% mid to distal LAD, 40-50% circumflex and 40-50% mid RCA stenosis. 100% occlusion of SVG to LAD. He is also status post Medtronic single-chamber ICD implantation with Dr. Gorman. Patient examined this morning at the bedside. Patient denies chest pain or pressure. He denies shortness of breath at rest. Vital signs stable. Potassium 5.9 today. PHYSICAL EXAM: VITAL SIGNS: Reviewed. GENERAL: Well-developed in no acute distress. HEENT: Head is normocephalic. Pupils are equal, round. Sclerae anicteric. Mucous membranes of the mouth are moist. Neck supple. No JVD or thyromegaly LUNGS: Respirations even and unlabored. Lungs diminished. HEART: Regular rate and rhythm. S1 and S2 heard. ICD site clean dry intact. No hematoma noted. Sling in place. EXTREMITIES: Normal range of motion. No clubbing or cyanosis. Peripheral pulses intact. No lower extremity edema. ASSESSMENT: Non-ST elevated myocardial infarction Apical LV thrombus Coronary artery disease with previous multivessel PCI and CABG, patient not a candidate for revascularization Ischemic cardiomyopathy, EF 30-35%, status post Medtronic single-chamber ICD implantation Hypertension Hyperlipidemia Diabetes mellitus, type II COPD Obesity BMI 40.2 Long runs of ventricular tachycardia Hyperkalemia PLAN: Discontinue Aldactone Continue other cardiac medications Kayexalate 30 mg 1 dose Patient may be discharged home this afternoon. He is to follow up in the device clinic in [address] Gorman in 4 weeks. Nurse practitioner note has been reviewed by physician. Signing provider agrees with the documented findings, assessment, and plan of care. Objective - Vital Signs Vital signs: Vital Signs Temp 97.7 F 03/13/20 08:00 Pulse 68 03/13/20 08:25 Resp 20 03/13/20 08:00 BP 132/59 03/13/20 08:00 Pulse Ox 94 L 03/13/20 08:00 Intake & Output 03/12/20 03/13/20 03/13/20 18:59 06:59 18:59 Intake Total 970 240 282 Balance 970 240 282 Weight 108.6 kg Intake: IV 150 Intake, IV Titration 100 Amount ACETAMINOPHEN IV (For NPO 50 ) 1,000 mg In Empty Bag 1 bag @ 400 mls/hr IVPB ONCE ONE Rx#:[id number] ceFAZolin 2 gm In Sodium 50 Chloride 0.9% 50 ml @ 100 mls/hr IVPB Q6H [facility] Rx#: [id number] Oral 720 240 282 Other: Voiding Method Toilet Toilet Urinal Urinal # Voids 2 1 3 # Bowel Movements 1 - Labs CBC & Chem 7: 03/13/20 07:06 03/13/20 07:06 Labs: Abnormal Lab Results - Last 24 Hours (Table) 03/12/20 03/13/20 03/13/20 Range/Units 20:23 06:02 07:06 WBC 17.2 H (3.8-10.6) k/uL Neutrophils # 10.6 H (1.3-7.7) k/uL Monocytes # 1.7 H (0-1.0) k/uL Sodium (137-145) mmol/L Potassium (3.5-5.1) mmol/L BUN (9-20) mg/dL Creatinine (0.66-1.25) mg/dL Glucose (74-99) mg/dL POC Glucose (mg/dL) 385 H 171 H (75-99) mg/dL 03/13/20 03/13/20 Range/Units 07:06 11:58 WBC (3.8-10.6) k/uL Neutrophils # (1.3-7.7) k/uL Monocytes # (0-1.0) k/uL Sodium 131 L (137-145) mmol/L Potassium 5.9 H (3.5-5.1) mmol/L BUN 32 H (9-20) mg/dL Creatinine 1.35 H (0.66-1.25) mg/dL Glucose 154 H (74-99) mg/dL POC Glucose (mg/dL) 193 H (75-99) mg/dL
[2020-03-13 16:22] LABS: Glucose,Whole Blood 146 mg/dL (75-99)
[2020-03-13] MEDS ORDERED: DEXTROSE 50% SYRINGE 50 ML IVP STA (16:34)
[2020-03-13] MEDS ORDERED: INSULIN REGULAR 100 UNIT/ML VIAL IV ONE (16:36)
[2020-03-13] MEDS ORDERED: MENTHOL-CAMPHOR LOTION 222 APPLIC/222 ML BOTTLE TOPICAL PRN (18:57)
[2020-03-13] MEDS: GABAPENTIN 300 MG CAP PO PRN (21:05)
[2020-03-13] MEDS: ATORVASTATIN 80 MG TAB PO SCH (21:05)
[2020-03-13] MEDS: CYCLOBENZAPRINE 10 MG TAB PO PRN (21:05)
[2020-03-13 21:17] LABS: Potassium 5.1 mmol/L (3.5-5.1)
[2020-03-13 21:28] LABS: Glucose,Whole Blood 140 mg/dL (75-99)
[2020-03-13] MEDS: INSULIN DETEMIR (LEVEMIR) 100 UNIT/ML SYR SQ SCH (21:40)
[2020-03-13] MEDS: traZODone HCL 50 MG TAB PO PRN (22:30)
[2020-03-14] MEDS: PANTOPRAZOLE 40 MG TABLET PO SCH (05:38)
[2020-03-14] MEDS: HYDROcodone/APAP 5-325MG 1 EACH TAB PO PRN ×2 (05:38→15:00)
[2020-03-14] MEDS: carvediloL 6.25 MG TAB PO SCH (05:38)
[2020-03-14] MEDS: INSULIN ASPART (NovoLOG) 100 UNIT/ML VIAL SQ SCH ×4 (06:32→12:54)
[2020-03-14 06:34] LABS: Glucose,Whole Blood 188 mg/dL (75-99)
[2020-03-14] MEDS: APIXABAN 5 MG TAB PO SCH (07:59)
[2020-03-14] MEDS: CLOPIDOGREL 75 MG TAB PO SCH (07:59)
[2020-03-14] MEDS: MELOXICAM 7.5 MG TAB PO SCH (07:59)
[2020-03-14 09:34] VITALS: BP 113/69; RESP 20; TEMP 98.3
[2020-03-14 11:36] LABS: Calcium 8.4 mg/dL (8.4-10.2); Potassium 4.6 mmol/L (3.5-5.1)
[2020-03-14 12:08] LABS: Glucose,Whole Blood 246 mg/dL (75-99)
--- NOTE | 2020-03-14 12:25 | P.PN ---
Subjective Progress Note Date: 03/14/20 CHIEF COMPLAINT: Chest pain HISTORY OF PRESENT ILLNESS: Patient is status post cardiac catheterization with Dr. 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 100% occlusion of SVG to LAD. He is also status post Medtronic single-chamber ICD implantation with Dr. Gorman. Patient examined this morning at the bedside. Patient denies chest pain or pressure. He denies shortness of breath at rest. Vital signs stable. Potassium 5.1 today. PHYSICAL EXAM: VITAL SIGNS: Reviewed. GENERAL: Well-developed in no acute distress. HEENT: Head is normocephalic. Pupils are equal, round. Sclerae anicteric. Mucous membranes of the mouth are moist. Neck supple. No JVD or thyromegaly LUNGS: Respirations even and unlabored. Lungs diminished. HEART: Regular rate and rhythm. S1 and S2 heard. ICD site clean dry intact. No hematoma noted. EXTREMITIES: Normal range of motion. No clubbing or cyanosis. Peripheral pulses intact. No lower extremity edema. ASSESSMENT: Non-ST elevated myocardial infarction Apical LV thrombus Coronary artery disease with previous multivessel PCI and CABG, patient not a candidate for revascularization Ischemic cardiomyopathy, EF 30-35%, status post Medtronic single-chamber ICD implantation Hypertension Hyperlipidemia Diabetes mellitus, type II COPD Obesity BMI 40.2 Long runs of ventricular tachycardia Hyperkalemia PLAN: Continue current cardiac medications Patient may be discharged home today from a cardiac standpoint. He is to follow up in the device clinic in [address] Dr[address] Gorman in 4 weeks. Nurse practitioner note has been reviewed by physician. Signing provider agrees with the documented findings, assessment, and plan of care. Objective - Vital Signs Vital signs: Vital Signs Temp 98.3 F 03/14/20 08:00 Pulse 72 03/14/20 08:00 Resp 20 03/14/20 08:00 BP 113/69 03/14/20 08:00 Pulse Ox 95 03/14/20 08:00 Intake & Output 03/13/20 03/14/20 03/14/20 18:59 06:59 18:59 Intake Total 642 240 Balance 642 240 Weight 107.8 kg Intake: Oral 642 240 Other: # Voids 4 2 2 - Labs CBC & Chem 7: 03/13/20 07:06 03/14/20 11:05 Labs: Abnormal Lab Results - Last 24 Hours (Table) 03/13/20 03/13/20 03/13/20 Range/Units 15:35 16:21 20:52 Sodium 132 L (137-145) mmol/L Potassium 5.8 H (3.5-5.1) mmol/L Chloride (98-107) mmol/L Carbon Dioxide (22-30) mmol/L BUN 36 H (9-20) mg/dL Creatinine 1.37 H (0.66-1.25) mg/dL Glucose 129 H (74-99) mg/dL POC Glucose (mg/dL) 146 H (75-99) mg/dL 03/13/20 03/14/20 03/14/20 Range/Units 21:26 06:16 11:05 Sodium 130 L (137-145) mmol/L Potassium (3.5-5.1) mmol/L Chloride 96 L (98-107) mmol/L Carbon Dioxide 32 H (22-30) mmol/L BUN 30 H (9-20) mg/dL Creatinine (0.66-1.25) mg/dL Glucose 284 H (74-99) mg/dL POC Glucose (mg/dL) 140 H 188 H (75-99) mg/dL 03/14/20 Range/Units 12:07 Sodium (137-145) mmol/L Potassium (3.5-5.1) mmol/L Chloride (98-107) mmol/L Carbon Dioxide (22-30) mmol/L BUN (9-20) mg/dL Creatinine (0.66-1.25) mg/dL Glucose (74-99) mg/dL POC Glucose (mg/dL) 246 H (75-99) mg/dL
[2020-03-14] MEDS: IPRATROPIUM-ALBUTEROL 3 ML NEB INHALATION PRN (16:20)
[2020-03-14 16:30] VITALS: PULSE 68
== END 2020-03-14 17:11 | disposition home or self-care (01) | DRG 223 ==
LOC: EC 12:36 → 1SOBS 15:02 → 3SCARD 19:21 → OBSVTOIN 03-09 15:15
PROVIDERS: ADMIT Internal Medicine; ATTEND Internal Medicine
DX: I21.4 Non-ST elevation (NSTEMI) myocardial infarction (principal); Z68.41 Body mass index [BMI] 40.0-44.9, adult; J44.1 Chronic obstructive pulmonary disease with (acute) exacerbation; I47.2 Ventricular tachycardia; I25.810 Atherosclerosis of coronary artery bypass graft(s) without angina pectoris; I50.22 Chronic systolic (congestive) heart failure; I25.10 Atherosclerotic heart disease of native coronary artery without angina pectoris; F17.200 Nicotine dependence, unspecified, uncomplicated; K64.8 Other hemorrhoids; E78.5 Hyperlipidemia, unspecified; E66.01 Morbid (severe) obesity due to excess calories; E11.65 Type 2 diabetes mellitus with hyperglycemia; K21.9 Gastro-esophageal reflux disease without esophagitis; F12.10 Cannabis abuse, uncomplicated; E87.5 Hyperkalemia; I51.3 Intracardiac thrombosis, not elsewhere classified; I49.3 Ventricular premature depolarization; I11.0 Hypertensive heart disease with heart failure; I25.5 Ischemic cardiomyopathy; I25.82 Chronic total occlusion of coronary artery; I25.2 Old myocardial infarction; Z98.1 Arthrodesis status; Z95.5 Presence of coronary angioplasty implant and graft; Z82.49 Family history of ischemic heart disease and other diseases of the circulatory system; Z79.899 Other long term (current) drug therapy; Z79.84 Long term (current) use of oral hypoglycemic drugs; Z79.82 Long term (current) use of aspirin; Z79.1 Long term (current) use of non-steroidal anti-inflammatories (NSAID); Z79.02 Long term (current) use of antithrombotics/antiplatelets; Z79.01 Long term (current) use of anticoagulants; Z88.5 Allergy status to narcotic agent; Z88.8 Allergy status to other drugs, medicaments and biological substances; Z91.09 Other allergy status, other than to drugs and biological substances; Z87.01 Personal history of pneumonia (recurrent); Z90.49 Acquired absence of other specified parts of digestive tract; Z98.890 Other specified postprocedural states
CPT/HCPCS: 33249; 36415; 71045; 71046; 80048; 80053; 80061; 83036; 83735; 83880; 84132; 84443; 84484; 85025; 85610; 85730; 93005; 93306; 93459; 94640; 94760; 96374; 99285

== ENCOUNTER 2020-03-27 04:23 | Emergency (ER) | payer MEDICARE ==
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
[2020-03-27 05:11] LABS: Basophils # (A) 0.2 k/uL (0-0.2); Basophils % (A) 2 %; Eosinophils # (A) 0.5 k/uL (0-0.7); Eosinophils % (A) 4 %; HCT 42.2 % (39.0-53.0); HGB 14.2 gm/dL (13.0-17.5); Lymphocytes # (A) 2.1 k/uL (1.0-4.8); Lymphocytes % (A) 20 %; MCH 30.4 pg (25.0-35.0); MCHC 33.6 g/dL (31.0-37.0); MCV 90.4 fL (80.0-100.0); Monocytes # (A) 1.1 k/uL (0-1.0); Monocytes % (A) 10 %; Neutrophils # (A) 6.6 k/uL (1.3-7.7); Neutrophils % (A) 62 %; Platelet Count 226 k/uL (150-450); RBC 4.67 m/uL (4.30-5.90); RDW 13.8 % (11.5-15.5); WBC 10.7 k/uL (3.8-10.6)
[2020-03-27 05:19] LABS: INR 0.9 (<1.2); Partial Thromboplastin Time 22.7 sec (22.0-30.0); Prothrombin Time 9.8 sec (9.0-12.0)
--- NOTE | 2020-03-27 05:25 | XR ---
EXAM: XR Chest, 1 View CLINICAL HISTORY: dysrhythmia TECHNIQUE: Frontal view of the chest. COMPARISON: 03/12/2020. FINDINGS: Lungs: Unremarkable. No consolidation. Pleural space: Unremarkable. No pneumothorax. Heart: Unremarkable. No cardiomegaly. Mediastinum: Unremarkable. Bones/joints: Sternotomy wires again noted. Postoperative changes involving the C-spine. Tubes, lines and devices: Unchanged left-sided chest wall pacemaker/lead tip. IMPRESSION: No radiographic evidence of acute cardiopulmonary process, allowing for portable technique, without significant interval change.
[2020-03-27 05:35] LABS: Albumin 4.2 g/dL (3.5-5.0); Calcium 9.1 mg/dL (8.4-10.2); Magnesium 1.7 mg/dL (1.6-2.3); Potassium 5.5 mmol/L (3.5-5.1); Total Bilirubin 0.6 mg/dL (0.2-1.3); Total Protein 7.2 g/dL (6.3-8.2)
[2020-03-27] MEDS: HYDROcodone/APAP 7.5-325MG 1 EACH TAB PO ONE (07:00)
[2020-03-27] MEDS: ALBUTEROL NEBULIZED 2.5 MG/3 ML INHALATION STA (07:18)
[2020-03-27 08:06] VITALS: BP 117/65; PULSE 61; RESP 18; TEMP 98.3
== END 2020-03-27 08:10 | disposition home or self-care (01) ==
LOC: EC 04:23
DX: R07.9 Chest pain, unspecified (principal); R06.02 Shortness of breath; R05 Cough; E11.9 Type 2 diabetes mellitus without complications; E78.5 Hyperlipidemia, unspecified; I10 Essential (primary) hypertension; I25.2 Old myocardial infarction; M19.90 Unspecified osteoarthritis, unspecified site; G89.29 Other chronic pain; M54.9 Dorsalgia, unspecified; F17.210 Nicotine dependence, cigarettes, uncomplicated; Z79.899 Other long term (current) drug therapy; Z79.02 Long term (current) use of antithrombotics/antiplatelets; Z79.4 Long term (current) use of insulin; Z79.82 Long term (current) use of aspirin; Z79.1 Long term (current) use of non-steroidal anti-inflammatories (NSAID); Z88.5 Allergy status to narcotic agent; Z91.048 Other nonmedicinal substance allergy status; Z95.1 Presence of aortocoronary bypass graft; Z95.5 Presence of coronary angioplasty implant and graft; Z82.49 Family history of ischemic heart disease and other diseases of the circulatory system
CPT/HCPCS: 36415; 71045; 80053; 83735; 84484; 85025; 85610; 85730; 93005; 94640; 99285

== ENCOUNTER 2020-05-22 19:03 | Emergency (ER) | payer MEDICARE ==
[2020-05-22] MEDS ORDERED: SODIUM CHLORIDE 0.9% 500 ML 500 ML IV STA (19:05)
[2020-05-22 19:10] LABS: Glucose,Whole Blood 164 mg/dL (75-99)
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
[2020-05-22] MEDS ORDERED: LORazepam 2 MG/ML INJ IV STA ×2 (19:20→19:34)
[2020-05-22] MEDS: LORazepam 2 MG/ML INJ IV STA ×2 (19:24→22:34)
[2020-05-22] MEDS ORDERED: ETOMIDATE 2 MG/ML 10 ML VIAL IVP STA (19:35)
--- NOTE | 2020-05-22 19:35 | CT ---
EXAMINATION TYPE: CT brain wo con DATE OF EXAM: 05/22/2020 COMPARISON: 09/19/2014 HISTORY: Neuro deficits, code stroke. Prior in PACS NOTE: EMS BROUGHT PATIENT IN DIRECTLY. NO ONE MA TRIN[facility] AWARE OF PATIENT ARRIVAL. CT DLP: 1158.4 mGycm Automated exposure control for dose reduction was used. There is cerebral cortical atrophy. There is 4 cm area of hypodensity in the right posterior frontal lobe related to old cortical infarct. There is no mass effect nor midline shift. There is no sign of intracranial hemorrhage. Calvarium is intact. The skull base is intact. There is very little pneumati zation of the mastoid sinuses. IMPRESSION: Cerebral atrophy. Old right posterior frontal lobe cortical infarct. No change compared to old exam. Chronic mastoid sinusitis.
[2020-05-22] MEDS ORDERED: ROCURONIUM 10 MG/ML (5 ML VIAL) IV ONE (19:45)
[2020-05-22] MEDS ORDERED: Alteplase PER PHARMACY Stroke 1 EACH MISC MISCELLANE PRN (19:46)
[2020-05-22 19:48] LABS: Basophils # (A) 0.2 k/uL (0-0.2); Basophils % (A) 2 %; Eosinophils # (A) 0.4 k/uL (0-0.7); Eosinophils % (A) 3 %; HCT 46.9 % (39.0-53.0); HGB 15.7 gm/dL (13.0-17.5); Lymphocytes # (A) 2.7 k/uL (1.0-4.8); Lymphocytes % (A) 23 %; MCH 29.8 pg (25.0-35.0); MCHC 33.4 g/dL (31.0-37.0); MCV 89.2 fL (80.0-100.0); Mean Platelet Volume 6.4; Monocytes # (A) 1.5 k/uL (0-1.0); Monocytes % (A) 13 %; Neutrophils # (A) 6.9 k/uL (1.3-7.7); Neutrophils % (A) 58 %; Platelet Count 316 k/uL (150-450); RBC 5.25 m/uL (4.30-5.90); RDW 13.3 % (11.5-15.5)
--- NOTE | 2020-05-22 19:50 | CT ---
EXAMINATION TYPE: CT angio head neck DATE OF EXAM: 05/22/2020 COMPARISON: None HISTORY: Neurologic deficit. CT DLP: 980.1 mGycm Automated exposure control for dose reduction was used. CONTRAST: Performed with IV Contrast, patient injected with 65 mL of Isovue 370. Images were obtained from the aortic arch to the vertex of the brain with IV contrast and 3-D post pr ocessed images. Thoracic aorta is atheromatous. There is arterial flow in the subclavian arteries bilaterally. There is normal branching pattern of the great vessels on the aortic arch. There is bilateral arterial flow in the subclavian arteries. There is complete occlusion of the proximal left internal carotid artery . There is arterial flow in the right common internal and external carotid artery. There is plaque fo rmation and approximate 25% stenosis proximal right internal carotid artery. There is arterial flow in both vertebral arteries. Left vertebral artery is larger than the right. Th ere is arterial flow in the vertebrobasilar artery system. There is thrombosis of the intracranial left internal carotid artery. There is arterial flow in the a nterior middle and posterior cerebral arteries bilaterally. There is a diminutive left middle cerebra l artery. Left middle cerebral artery appears to fill through the anterior communicating artery from the right side. There is small basilar artery and posterior cerebral arteries. There is normal contrast opacification of the venous sinuses. I see no evidence of intracranial aneurysm or neovascularity. 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 There is diminutive left middle cerebral arter y consistent with decreased flow. No intracranial aneurysm or neovascularity. Mild plaque at the orig in right internal carotid artery.
[2020-05-22] MEDS ORDERED: fentaNYL (PF) 50 MCG/ML 2 ML AMP IV PRN (19:55)
[2020-05-22] MEDS ORDERED: MIDAZOLAM 1 MG/ML 5 ML VIAL IV STA (19:55)
[2020-05-22] MEDS: ATORVASTATIN 80 MG TAB PO STA ×2 (20:06→20:21)
[2020-05-22] MEDS: ASPIRIN 325 MG TAB PO STA ×2 (20:06→20:20)
[2020-05-22] MEDS: TICAGRELOR 90 MG TAB PO STA ×2 (20:06→20:23)
[2020-05-22 20:15] LABS: Appearance,Urine Clear (Clear); Bilirubin,Urine Negative (Negative); Blood,Urine Negative (Negative); Color,Urine Yellow; Glucose,Urine (UA) Negative (Negative); Ketones,Urine Negative (Negative); Leukocyte Esterase,Urine Negative (Negative); Nitrite,Urine Negative (Negative); PH, Urine 5.5 (5.0-8.0); Protein,Urine Negative (Negative); Specific Gravity,Urine 1.032 (1.001-1.035); Urobilinogen,Urine <2.0 mg/dL (<2.0)
[2020-05-22 20:17] LABS: Prothrombin Time 10.9 sec (9.0-12.0)
[2020-05-22] MEDS ORDERED: HEPARIN SODIUM,PORCINE 5,000 UNIT/ML 1 ML VIAL IV PRN (20:17)
[2020-05-22] MEDS ORDERED: HEPARIN SODIUM,PORCINE 5,000 UNIT/ML 1 ML VIAL IV ONE (20:17)
--- NOTE | 2020-05-22 20:18 | XR ---
EXAMINATION TYPE: XR chest 1V DATE OF EXAM: 05/22/2020 COMPARISON: 03/27/2020 HISTORY: Irregular heartbeat altered mental status TECHNIQUE: Single view FINDINGS: Heart and mediastinum are within normal limits. Lungs are clear of consolidation. There is left axillary pacemaker. There is nasogastric tube with the tip in the gastric fundus. There are ster nal wires. There is cervical spine fusion surgery. There is no heart failure. IMPRESSION: No active cardiopulmonary disease. Normal heart. No change.
[2020-05-22 20:22] LABS: ALT 14 U/L (4-49); AST 21 U/L (17-59); African American GFR (CKD) 59 (>60 ml/min/1.73 sqM); Alcohol <10 mg/dL; Alkaline Phosphatase 56 U/L (38-126); Anion Gap 10 mmol/L; Blood Urea Nitrogen 24 mg/dL (9-20); Calcium 9.4 mg/dL (8.4-10.2); Carbon Dioxide 25 mmol/L (22-30); Chloride 96 mmol/L (98-107); Glucose 138 mg/dL (74-99); Magnesium 1.4 mg/dL (1.6-2.3); Non-African American GFR(CKD) 51 (>60 ml/min/1.73 sqM); Potassium 5.3 mmol/L (3.5-5.1); Sodium 131 mmol/L (137-145); Total Bilirubin 0.4 mg/dL (0.2-1.3); Total Protein 6.7 g/dL (6.3-8.2)
[2020-05-22 20:22] LABS: Amphetamine Screen,Urine Not Detected (NotDetected); Barbiturate Screen,Urine Not Detected (NotDetected); Benzodiazepines Screen,Urine Not Detected (NotDetected); Cocaine Screen,Urine Not Detected (NotDetected); Methadone Screen, Urine Not Detected (NotDetected); Opiate Screen,Urine Detected (NotDetected); Oxycodone Screen, Urine Not Detected (NotDetected); Phencyclidine Screen,Urine Not Detected (NotDetected); Tricyclic Antidepressant,Urine Detected (NotDetected); Urn Cannabinoid Scrn Detected (NotDetected)
[2020-05-22 20:24] LABS: Partial Thromboplastin Time 20.1 sec (22.0-30.0)
[2020-05-22] MEDS ORDERED: HEPARIN SOD,PORK IN 0.45% NACL 25,000 UNIT in 0.45% NACL 1 250ML.BAG IV SCH (20:30)
[2020-05-22] MEDS ORDERED: SODIUM CHLORIDE 0.9% 50 ML MINI-BAG IV ONE (20:48)
[2020-05-22 20:51] LABS: Allen Test Performed? Yes
[2020-05-22 20:52] VITALS: TEMP 98.2
[2020-05-22 20:52] LABS: ABG Base Excess -2.8 mmol/L; ABG HCO3 23 mmol/L (21-25); ABG PCO2 45 mmHg (35-45); ABG PH 7.32 (7.35-7.45); ABG PO2 400 mmHg (83-108); ABG TCO2 25 mmol/L (19-24)
--- NOTE | 2020-05-22 21:13 | XR ---
EXAMINATION TYPE: XR chest 1V portable DATE OF EXAM: 05/22/2020 COMPARISON: Today HISTORY: Check tube placement TECHNIQUE: 2 views FINDINGS: There is endotracheal tube 7 cm from the delvin. There is nasogastric tube in the stomach. There is left axillary pacemaker. There is some mild atelectasis right lung base. There is no heart f ailure. IMPRESSION: Endotracheal tube is high and could be advanced 2 to 3 cm. There is some mild atelectasis right lung base increased compared to exam one hour ago.
[2020-05-22 21:35] VITALS: BP 158/86; PULSE 115; RESP 18
== END 2020-05-22 21:35 | disposition other institution (70) ==
LOC: EC 19:03
DX: I63.9 Cerebral infarction, unspecified (principal); I25.10 Atherosclerotic heart disease of native coronary artery without angina pectoris; I48.92 Unspecified atrial flutter; I10 Essential (primary) hypertension; E78.5 Hyperlipidemia, unspecified; E11.9 Type 2 diabetes mellitus without complications; I25.2 Old myocardial infarction; J44.9 Chronic obstructive pulmonary disease, unspecified; K21.9 Gastro-esophageal reflux disease without esophagitis; Z79.01 Long term (current) use of anticoagulants; Z79.4 Long term (current) use of insulin; Z79.82 Long term (current) use of aspirin; Z79.1 Long term (current) use of non-steroidal anti-inflammatories (NSAID); Z79.899 Other long term (current) drug therapy; Z88.5 Allergy status to narcotic agent; Z91.018 Allergy to other foods; Z87.891 Personal history of nicotine dependence; Z95.1 Presence of aortocoronary bypass graft
CPT/HCPCS: 99291 ×2; 96374 ×2; 96375 ×4; 96361 ×2; 36415; 36600; 94002; 93005; 80053; 82805; 83605; 83735; 84484; 85025; 85610; 85730; 81003; 80306; 87070; 87205; 71045; 70496; 70450; 70498; G0480; J2060; J1644; J2250; J3010; Q9967; 80320